=== PATIENT | female | born 1955 | race Caucasian/White ===

== ENCOUNTER 2017-04-04 10:56 | Inpatient (IN) | payer MEDICARE, MEDICAID ==
[~2017-04-04] VITALS: Ht 152.4 cm; Wt 49.0 kg
[~2017-04-04 10:56] MED LIST: AMILORIDE5 MG PO; AMLODIPINE5 MG PO; CALCIUM CARB500 MG PO; COZAAR25 MG PO; CREON1 CAP PO; CREON24000 UNT PO; DIGOXIN0.25 MG PO; FAMOTIDINE20 M1 PO; HYDROCHLOR12.5 MG/CA PO; HYDROCHLOROT25 MG PO; INDERAL10 M1 PO; LOSARTAN POT50 MG PO; LOSARTAN POTASS25 MG PO; MAG OXIDE400 MG PO; METOPROL TAR25 MG PO; MIRTAZAPINE7.5 MG PO; ONDANSETRON HCL4 MG PO; PANTOPRAZOLE SO40 MG PO; PHENERGAN25 MG/TAB PO; PROTONIX40 M2 PO; PROTONIX40 MG PO; SENNA-TABS8.6 MG PO; VITAMIN D50000 UNT PO; [UNRECOGNIZED DRUG - CODE] PO
--- NOTE | 2017-04-04 11:03 | NUR ---
PATIENT AMBULATED TO ROOM 9 WITH STEADY GAIT MD MADE AWARE OF PATIENT STATUS
[2017-04-04] MEDS ORDERED: LOSARTAN POT50 MG PO (11:08)
[2017-04-04] MEDS ORDERED: MAGNESI12 PO (11:27)
--- NOTE | 2017-04-04 11:36 | NUR ---
PT RESTING MORE COMFORTABLY AT THIS TIME. VSS.
[2017-04-04 11:43] LABS: HEMATOCRIT 52.2 % (37.0-47.0); HEMOGLOBIN 17.2 g/dl (12.0-16.0); IMMATURE GRANULOCYTES 0.4 % (0.0-1.0); MEAN CELL VOLUME 82.5 fL CALC (80.0-100.0); MEAN CORPUSCULAR HGB 27.2 pG CALC (26.0-32.0); NEUT# 9.54 thou/uL (2.00-7.15); RED BLOOD COUNT 6.33 mill/uL (4.20-5.60); RED CELL DISTRI WIDTH 13.5 % (11.5-15.5)
[2017-04-04 11:55] LABS: ALKALINE PHOSPHATASE 112 u/l (38-126); AMYLASE 241 u/l (30-110); ANION GAP 22 (6-22 (CALC)); BILIRUBIN, TOTAL 0.7 mg/dL (0.0-1.4); BUN 18 mg/dL (7-17); BUN/CREATININE RATIO 22 (12-20 (CALC)); CALCIUM 9.7 mg/dL (8.4-10.2); CARBON DIOXIDE 25 mmol/l (22-30); CHLORIDE 100 mmol/l (95-108); CREATININE 0.8 mg/dL (0.5-1.0); GFR > 60 ML/MIN (>=60 (CALC)); GFR FOR AFR.AMER. > 60 ML/MIN (>=60 (CALC)); GLUCOSE 132 mg/dL (65-105); LIPASE 613 u/l (23-300); POTASSIUM 3.4 mmol/l (3.5-5.1); SGOT/AST 38 u/l (14-36); SGPT/ALT 40 u/l (9-52); SODIUM 144 mmol/l (137-146); TOTAL PROTEIN 9.1 g/dL (6.3-8.2)
[2017-04-04 12:06] LABS: MYOGLOBIN 25 ng/mL (0 - 62)
--- NOTE | 2017-04-04 12:25 | NUR ---
PT AMBULATED TO BATHROOM WITH SLOW STEADY GAIT. STATES PAIN IS 2/10 AT THIS TIME.VSS. OBTAINED 200CC CLEAR DARK LI URINE,TOELRATING IVF BOLUS WELL.
[2017-04-04 12:48] LABS: URINE BLOOD DIPSTICK TRACE-INTACT (NEGATIVE); URINE GLUCOSE - DIPSTICK NEGATIVE (NEGATIVE); URINE KETONE TRACE mg/dL (NEGATIVE); URINE LEUK ESTERASE NEGATIVE (NEGATIVE); URINE NITRITE - DIPSTICK NEGATIVE (Negative); URINE PROTEIN - DIPSTICK 30 mg/dL (NEG-TRACE); URINE SPECIFIC GRAVITY 1.015; URINE UROBILINOGEN - DIPSTICK 0.2 E.U./dL (0.2)
--- NOTE | 2017-04-04 12:50 | NUR ---
INITIATED SECOND LITER IV FLUID BOLUS. PT TOLERATING WELL. AWARE OF ADMIT AND AGREEABLE. PT STATES SHE IS COMFORTABLE AT THIS TIME.
[2017-04-04 12:59] LABS: URINE BILIRUBIN - DIPSTICK SMALL (NEGATIVE); URINE CLARITY SLIGHT CLOUDY
[2017-04-04 13:00] LABS: URINE COLOR DK. YELLOW; URINE EPITHELIAL CELLS MODERATE EPI/hpf (0-FEW); URINE MUCUS MODERATE hpf (NONE-FEW); URINE RBC 0-2 RBC/hpf (0-5)
--- NOTE | 2017-04-04 13:23 | NUR ---
TRANSPORTED PT TO [facility] VIA WC IN STABLE CONDITION.
--- NOTE | 2017-04-04 13:23 | NUR ---
CALLED REPORT TO KAL LAGUNAS RN
[2017-04-04 13:35] VITALS: BP 176/59
--- NOTE | 2017-04-04 13:40 | NUR ---
PT ARRIVED TO FLOOR VIA WHEELCHAIR ACCOMPANIED BY SILVANA MATTA. PT AMBULATES INDEPENDENTLY. IS PRESENT. PLN OF CARE DISUCSSED. REPORTING OF CONCERNS ENCOURAGED. PT ORIENTED TO ROOM AND EQUIPMENT. CALL LIGHT REIVEWED AND IN REACH. PT STATES UNDERSTANDING.
[2017-04-04 15:44] VITALS: BP 154/62
[2017-04-04 19:01] VITALS: BP 179/83
--- NOTE | 2017-04-04 19:26 | NUR ---
REPORT RECEIVED BS FROM LEAH; PT.C/O PAIN 07/13, MEDICATED W/MORPHINE AND ZOFRAN, WILL REEVALUATE FOR PAIN AND NAUSEA; CALL LIGHT W/IN REACH AND INSTRUCTED TO CALL
[2017-04-04 20:00] VITALS: BP 152/82
--- NOTE | 2017-04-04 23:25 | NUR ---
PT.C/O PAIN IN RUQ OF ABD 10/ AND SOME NAUSEA, MEDICATED W/MORPHINE AND ZOFRAN; DENIES ANY OTHER NEEDS AT THIS TIME, INSTRUCTED TO CALL IF ANY ASSISTANCE IS NEEDED, CALL LIGHT W/IN REACH
[2017-04-05 04:43] VITALS: BP 134/77
--- NOTE | 2017-04-05 04:47 | NUR ---
PT.MEDICATED FOR 10/10 PAIN IN UPPER RIGHT ABD QUAD. AND MILD NAUSEA WORRSENED BY MORPHINE; PT. DENIES ANY FURTHER NEEDS AT THIS TIME, CALL LIGHT AT BS
[2017-04-05 05:18] LABS: AMYLASE 343 u/l (30-110); ANION GAP 15 (6-22 (CALC)); BUN 6 mg/dL (7-17); BUN/CREATININE RATIO 10 (12-20 (CALC)); CALCIUM 8.3 mg/dL (8.4-10.2); CARBON DIOXIDE 26 mmol/l (22-30); CHLORIDE 103 mmol/l (95-108); CREATININE 0.6 mg/dL (0.5-1.0); GFR > 60 ML/MIN (>=60 (CALC)); GFR FOR AFR.AMER. > 60 ML/MIN (>=60 (CALC)); GLUCOSE 96 mg/dL (65-105); LIPASE 1186 u/l (23-300); POTASSIUM 3.5 mmol/l (3.5-5.1); SODIUM 141 mmol/l (137-146)
[2017-04-05 05:22] LABS: HEMATOCRIT 42.5 % (37.0-47.0); HEMOGLOBIN 14.2 g/dl (12.0-16.0); IMMATURE GRANULOCYTES 0.4 % (0.0-1.0); MEAN CELL VOLUME 82.4 fL CALC (80.0-100.0); MEAN CORPUSCULAR HGB 27.5 pG CALC (26.0-32.0); MEAN CORPUSCULAR HGB CONC 33.4 g/L CALC (32.0-36.0); NEUT# 7.29 thou/uL (2.00-7.15); RED BLOOD COUNT 5.16 mill/uL (4.20-5.60); RED CELL DISTRI WIDTH 13.2 % (11.5-15.5)
--- NOTE | 2017-04-05 07:23 | NUR ---
REPORT RECEIVED FROM SILVANA RO. PT SLEEPING AT THIS TIME. CALL LIGHT WITHIN REACH.
[2017-04-05 08:23] VITALS: BP 128/77
--- NOTE | 2017-04-05 14:15 | NUR ---
PT REPORTS MODERATE RUQ ABD PAIN. DILAUDID IV ADMINISTERED. WILL MONITOR FOR EFFECTIVENESS.
--- NOTE | 2017-04-05 15:00 | NUR ---
PT REPORTS RELIEF OF ABD PAIN. TOLERATING CLEAR LIQUIDS AT THIS TIME. WILL CONTINUE TO MONITOR.
--- NOTE | 2017-04-05 17:35 | NUR ---
PT REPORTS MILD ABDOMINAL PAIN. PAIN MED SCHEDULE REVIEWED, PT STATES UNDERSTANDING.
[2017-04-05 19:12] VITALS: BP 129/54
--- NOTE | 2017-04-05 21:45 | NUR ---
PT RESTING IN SEMI FOWLERS POSITION;PT DENIES ANY PAIN AT THIS TIME STATING "IM FEELING BETTER TODAY";ASSESSMENT COMPLETED;IV SITE TO RIGHT HAND INFUSING WELL;SKIN INTACT;PT DENIES ANY NEEDS AT THIS TIME;BED IN LOWEST POSITION WITH CALL LIGHT IN REACH;WILL CONTINUE TO MONITOR
--- NOTE | 2017-04-05 22:50 | NUR ---
PT COMPLAINS OF ABDOMINAL PAIN RATING 5/10 ON THE PAIN SCALE AND REQUESTS PRN PAIN MEDICATION;PT MEDICATED PER MD ORDERS;IV FLUIDS INFUSING WELL;PT DENIES ANY OTHER NEEDS;BED IN LOWEST POSITION WITH CALL LIGHT IN REACH;WILL CONTINUE TO MONITOR
[2017-04-05 23:30] VITALS: BP 146/75
[2017-04-06 03:24] VITALS: BP 122/79
--- NOTE | 2017-04-06 06:08 | NUR ---
PT APPEARS TO BE SLEEPING IN SEMI FOWLERS POSITION;IV FLUIDS INFUSING WELL TO RIGHT HAND;NO S/S OF DISTRESS NOTED;RESPIRATIONS EVEN AND UNLABORED ON RA;BED IN LOWEST POSITION WITH CALL LIGHT IN REACH;WILL CONTINUE TO MONITOR
[2017-04-06 06:19] LABS: HEMATOCRIT 38.2 % (37.0-47.0); HEMOGLOBIN 12.7 g/dl (12.0-16.0); IMMATURE GRANULOCYTES 0.3 % (0.0-1.0); MEAN CELL VOLUME 82.9 fL CALC (80.0-100.0); MEAN CORPUSCULAR HGB 27.5 pG CALC (26.0-32.0); MEAN CORPUSCULAR HGB CONC 33.2 g/L CALC (32.0-36.0); NEUT# 3.14 thou/uL (2.00-7.15); RED BLOOD COUNT 4.61 mill/uL (4.20-5.60); RED CELL DISTRI WIDTH 13.3 % (11.5-15.5)
--- NOTE | 2017-04-06 06:23 | NUR ---
PT CALLS WRITTER TO THE ROOM AND REQUESTS PRN PAIN MEDICATION FOR ABDOMINAL PAIN RATING 5/10 ON THE PAIN SCALE;PT MEDICATED ACCORDINGLY PER MAR;PT DENIES ANY OTHER NEEDS AT THIS TIME;CALL LIGHT WITHIN REACH;WILL CONTINUE TO MONITOR
[2017-04-06 06:45] LABS: AMYLASE 82 u/l (30-110); ANION GAP 13 (6-22 (CALC)); BUN 5 mg/dL (7-17); BUN/CREATININE RATIO 9 (12-20 (CALC)); CALCIUM 8.4 mg/dL (8.4-10.2); CARBON DIOXIDE 25 mmol/l (22-30); CHLORIDE 108 mmol/l (95-108); CREATININE 0.6 mg/dL (0.5-1.0); GFR > 60 ML/MIN (>=60 (CALC)); GFR FOR AFR.AMER. > 60 ML/MIN (>=60 (CALC)); GLUCOSE 80 mg/dL (65-105); LIPASE 151 u/l (23-300); POTASSIUM 3.7 mmol/l (3.5-5.1); SODIUM 143 mmol/l (137-146)
[2017-04-06 08:13] VITALS: BP 142/70
--- NOTE | 2017-04-06 10:38 | NUR ---
Discharge instructions given. Patient verbalizes understanding of same. Discharged in stable condition via Ambulatory to Home with family. All belongings sent with pt.
== END 2017-04-06 10:37 | disposition home or self-care (01) | DRG 440 ==
LOC: ENPENDDIS → ED 10:56 → ED-I 12:38 → ED 13:01 → MS2 13:02
PROVIDERS: Emergency Medicine; Nurse Practitioner Family; ADMIT Internal Medicine; ATTEND Internal Medicine
DX: K85.90 Acute pancreatitis without necrosis or infection, unspecified (principal); E83.42 Hypomagnesemia; I10 Essential (primary) hypertension; K21.9 Gastro-esophageal reflux disease without esophagitis; I48.0 Paroxysmal atrial fibrillation; K86.0 Alcohol-induced chronic pancreatitis; F10.21 Alcohol dependence, in remission; Z87.891 Personal history of nicotine dependence; Z90.49 Acquired absence of other specified parts of digestive tract
CPT/HCPCS: Q9967; S0164

== ENCOUNTER 2017-08-16 20:06 | Observation (INO) | payer MEDICARE ==
[~2017-08-16] VITALS: Ht 152.4 cm; Wt 48.8 kg
[~2017-08-16 20:06] MED LIST changes: +MAGNESI12 PO
--- NOTE | 2017-08-16 20:26 | NUR ---
TAKEN BACK TO ROOM 10 VIA W/C. CLAIMS SHE IS UNABLE TO GIVE A URINE SPECIMEN AT THIS TIME.
--- NOTE | 2017-08-16 20:52 | NUR ---
IVF, IV PROTONIX, IV ANTIEMETIC AND IV PAIN MED GIVEN PER MD ORDER.
[2017-08-16 20:54] LABS: HEMATOCRIT 47.7 % (37.0-47.0); HEMOGLOBIN 15.8 g/dl (12.0-16.0); IMMATURE GRANULOCYTES 0.5 % (0.0-1.0); MEAN CELL VOLUME 82.8 fL CALC (80.0-100.0); MEAN CORPUSCULAR HGB 27.4 pG CALC (26.0-32.0); MEAN CORPUSCULAR HGB CONC 33.1 g/L CALC (32.0-36.0); NEUT# 8.51 thou/uL (2.00-7.15); RED BLOOD COUNT 5.76 mill/uL (4.20-5.60); RED CELL DISTRI WIDTH 12.7 % (11.5-15.5)
[2017-08-16 21:08] LABS: ALBUMIN 4.1 g/dL (3.2-5.0); ALKALINE PHOSPHATASE 112 u/l (38-126); AMYLASE 152 u/l (30-110); ANION GAP 16 (6-22 (CALC)); BILIRUBIN, TOTAL 0.7 mg/dL (0.0-1.4); BUN 17 mg/dL (7-17); BUN/CREATININE RATIO 23 (12-20 (CALC)); CALCIUM 10.2 mg/dL (8.4-10.2); CARBON DIOXIDE 25 mmol/l (22-30); CHLORIDE 105 mmol/l (95-108); CREATININE 0.7 mg/dL (0.5-1.0); GFR > 60 ML/MIN (>=60 (CALC)); GFR FOR AFR.AMER. > 60 ML/MIN (>=60 (CALC)); GLUCOSE 118 mg/dL (65-105); LIPASE 502 u/l (23-300); POTASSIUM 3.9 mmol/l (3.5-5.1); SGOT/AST 21 u/l (14-36); SGPT/ALT 38 u/l (9-52); SODIUM 143 mmol/l (137-146); TOTAL PROTEIN 7.2 g/dL (6.3-8.2)
--- NOTE | 2017-08-16 21:52 | NUR ---
RESTING ON STRETCHER, NO C/O AT THIS TIME. IVF INFUSING WELL, NO REDNESS OR EDEMA NOTED.
--- NOTE | 2017-08-16 22:45 | NUR ---
AMBULATING TO BR GAIT SLOW AND STEADY.
[2017-08-16 22:59] LABS: URINE BILIRUBIN - DIPSTICK NEGATIVE (NEGATIVE); URINE BLOOD DIPSTICK TRACE-LYSED (NEGATIVE); URINE CLARITY SL CLOUDY; URINE COLOR YELLOW; URINE GLUCOSE - DIPSTICK NEGATIVE (NEGATIVE); URINE KETONE NEGATIVE (NEGATIVE); URINE LEUK ESTERASE NEGATIVE (NEGATIVE); URINE NITRITE - DIPSTICK NEGATIVE (Negative); URINE PROTEIN - DIPSTICK NEGATIVE (NEG-TRACE); URINE SPECIFIC GRAVITY <=1.005; URINE UROBILINOGEN - DIPSTICK 0.2 E.U./dL (0.2)
--- NOTE | 2017-08-16 23:02 | NUR ---
MD IN ROOM TO DISCUSS CLINICAL FINDINGS WITH PT. AND MAKE HER AWARE OF ADMISSION.
[2017-08-16 23:03] LABS: BARBITURATES NEGATIVE (NEGATIVE); COCAINE NEGATIVE (NEGATIVE); METHADONE NEGATIVE (NEGATIVE); OXCYCODONE NEGATIVE (NEGATIVE); TETRAHYDROCANNABIONOL POSITIVE (NEGATIVE); TRICYLIC ANTIDEPRESSANTS NEGATIVE (NEGATIVE)
--- NOTE | 2017-08-16 23:05 | NUR ---
pt. states her pain scale is now decreased to a 7 on a scale of 1-10.
--- NOTE | 2017-08-16 23:09 | NUR ---
Admission Note Report Given to: NAUN TIDWELL Transported by: Wheelchair X Stretcher Transported with: X Nurse Transporter X Patent IV O2 Lead Burner Helper
[2017-08-16 23:30] VITALS: BP 155/79
--- NOTE | 2017-08-16 23:30 | NUR ---
RECEIVED FROM ER VIA W/C ACCOMPANIED BY DIONNA PINA, AMBULATING TO BED WITH STEADY GAIT, A/O X3, RESPIRATIONS EVEN AND UNLABORED. ADMITS TO ABDOMINAL PAIN TO RIGHT SIDE, DISCUSSED WITH PT TIME DILAUDID AND ZOFRAN AVAILABLE SINCE THEY ARE ORDERED Q4H PRN PAIN AND WAS LAST MEDICATED AT 2051 IN ER, VOICES UNDERSTANDING. NS SPIKED AND INFUSING TO LAC AT 200CC/HR AT 2350, LIQUIDS AT BED SIDE. ORIENTED TO BED CONTROLS AND CALL LIGHT. WILL CONTINUE TO MONITOR.
--- NOTE | 2017-08-16 23:34 | NUR ---
PT. TAKEN TO MS FLOOR VIA W/C, NO C/O.
--- NOTE | 2017-08-17 00:53 | NUR ---
MEDICATED WITH DILAUDID 1MG IV FOR C/O ABOMINAL PAIN 06/13.
--- NOTE | 2017-08-17 04:30 | NUR ---
RESTING WITH EYES CLOSED, RESPIRATIONS EVEN AND UNLABORED, ADMITS TO FEELING BETTER THIS AM. CALL LIGHT IN REACH.
[2017-08-17 04:36] VITALS: BP 125/73
[2017-08-17 07:32] VITALS: BP 147/89
--- NOTE | 2017-08-17 07:32 | NUR ---
ASSESSMENT IS COMPLETED: PT IS RELAXING IN BED WITH NO DISTRESS NOTED. IV SITE IS FREE FROM REDNESS OR EDEMA. CONTINUE TO OBSERVE AND MONITOR.
--- NOTE | 2017-08-17 12:45 | NUR ---
PT IS RELAXING IN BED WITH NO DISTRESS NOTED. IV SITE IS FREE FROM REDNESS OR EDEMA. CONTINUE TO OSBERVE AND MONITOR.
[2017-08-17 15:23] VITALS: BP 94/62
--- NOTE | 2017-08-17 16:45 | NUR ---
PT CONTINEUS TO RELAX IN BED WITH NO DISTRESS NOTED. IV SITE IS FREE FROM REDNES OR EDEMA.
[2017-08-17 19:37] VITALS: BP 108/67
--- NOTE | 2017-08-17 19:53 | NUR ---
PT IN BED A/O X3, RESPIRATIONS EVEN AND UNLABORED ON RA, IV FLUIDS INFUSING TO LAC AT 80CC/HR. ADMITS TO ABDOMINAL DISCOMFORT /, CLEAR LIQUIDS IN REACH, WILL CONTINUE TO MONITOR.
--- NOTE | 2017-08-17 22:09 | NUR ---
C/O ABDOMINAL PAIN 4/10 AND NAUSEA, MEDICATED WITH DILAUDID 1MG IV AND ZOFRAN 4MG IV. WILL CONTINUE TO MONITOR.
--- NOTE | 2017-08-18 00:30 | NUR ---
RESTING WITH EYES CLOSED, RESPIRATIONS EVEN AND UNLABORED.
--- NOTE | 2017-08-18 04:29 | NUR ---
RESTING WITH EYES CLOSED, WEARING OWN CPAP, RESPONDS EASILY TO VERBL COMMAND, DENIES NAUSEA OR ABD PAIN. CALL LIGHT IN REACH.
[2017-08-18 05:35] VITALS: BP 151/81
[2017-08-18 06:38] LABS: HEMATOCRIT 39.6 % (37.0-47.0); IMMATURE GRANULOCYTES 0.4 % (0.0-1.0); MEAN CELL VOLUME 84.3 fL CALC (80.0-100.0); MEAN CORPUSCULAR HGB 27.7 pG CALC (26.0-32.0); MEAN CORPUSCULAR HGB CONC 32.8 g/L CALC (32.0-36.0); NEUT# 4.02 thou/uL (2.00-7.15); RED BLOOD COUNT 4.7 mill/uL (4.20-5.60); RED CELL DISTRI WIDTH 12.8 % (11.5-15.5)
[2017-08-18 06:50] LABS: AMYLASE 68 u/l (30-110); ANION GAP 11 (6-22 (CALC)); BUN 9 mg/dL (7-17); BUN/CREATININE RATIO 13 (12-20 (CALC)); CALCIUM 8.8 mg/dL (8.4-10.2); CARBON DIOXIDE 25 mmol/l (22-30); CHLORIDE 109 mmol/l (95-108); CREATININE 0.7 mg/dL (0.5-1.0); GFR > 60 ML/MIN (>=60 (CALC)); GFR FOR AFR.AMER. > 60 ML/MIN (>=60 (CALC)); GLUCOSE 92 mg/dL (65-105); LIPASE 108 u/l (23-300); MAGNESIUM 1.2 mg/dL (1.6-2.3); SODIUM 142 mmol/l (137-146)
[2017-08-18 07:35] VITALS: BP 159/82
--- NOTE | 2017-08-18 07:35 | NUR ---
ASSESSMENT IS COMPLETED: IV SITE IS FREE FROM REDNESS OR EDEMA. NO DISTRESS NOTED. SOME C/O PAIN VOICED . PAIN MEDICATION WAS GIVEN IN PM CONTINUE TO OBSERVDE AND MONITOR.
--- NOTE | 2017-08-18 12:30 | NUR ---
PT IS RELAXING IN BED WITH NO DISTRESS NOTED. IV SITE IS FREE FROM REDNESS OR EDEMA.
[2017-08-18 15:03] VITALS: BP 135/64
--- NOTE | 2017-08-18 17:35 | NUR ---
PT AMBULATED OFF THE UNTI FOR DISCHARGE . RECEIVED DISCHARGE INSTRUCTIONS AND VERBALIZED UNDERSTANDING. IV SITE DISCONTINUED CATHETER INTACT. Discharge instructions given. Patient verbalizes understanding of same. Discharged in stable condition via Wheelchair to Home with family. All belongings sent with pt.
== END 2017-08-18 17:28 | disposition home or self-care (01) ==
LOC: ED 20:06 → ED-I 22:45 → ED 22:59 → MS2 23:00
PROVIDERS: Emergency Medicine; Nurse Practitioner Family; ADMIT Internal Medicine; ATTEND Internal Medicine
DX: K85.90 Acute pancreatitis without necrosis or infection, unspecified (principal); I10 Essential (primary) hypertension; I48.0 Paroxysmal atrial fibrillation; G89.4 Chronic pain syndrome; K21.9 Gastro-esophageal reflux disease without esophagitis; F10.21 Alcohol dependence, in remission; E55.9 Vitamin D deficiency, unspecified; K86.1 Other chronic pancreatitis; Z87.891 Personal history of nicotine dependence
CPT/HCPCS: J3475; Q9967; S0164

== ENCOUNTER → 2018-11-30 | Outpatient (REF) | payer MEDICARE | END | disposition home or self-care (01) | LOC: MAMMO 08:12 | PROVIDERS: ATTEND Internal Medicine | DX: Z12.31 Encounter for screening mammogram for malignant neoplasm of breast (principal); N95.1 Menopausal and female climacteric states; Z13.820 Encounter for screening for osteoporosis ==

== ENCOUNTER 2019-06-20 17:02 | Emergency (ER) | payer MEDICARE ==
[~2019-06-20] VITALS: Ht 152.4 cm; Wt 50.0 kg
[2019-06-20 17:54] LABS: IMMATURE GRANULOCYTES 0.5 % (0.0-5.0); MEAN CELL VOLUME 82.7 fL CALC (80.0-100.0); MEAN CORPUSCULAR HGB 27.4 pG CALC (26.0-32.0); MEAN CORPUSCULAR HGB CONC 33.1 g/L CALC (32.0-36.0); NEUT# 7.52 thou/uL (2.00-7.15); RED BLOOD COUNT 5.33 mill/uL (4.20-5.60); RED CELL DISTRI WIDTH 13.3 % (11.5-15.5)
[2019-06-20 18:00] LABS: HEMATOCRIT 44.1 % (37.0-47.0); HEMOGLOBIN 14.6 g/dl (12.0-16.0)
[2019-06-20 18:09] LABS: ALBUMIN 3.6 g/dL (3.2-5.0); ALKALINE PHOSPHATASE 110 u/l (38-126); ANION GAP 15 (6-22 (CALC)); BILIRUBIN, TOTAL 0.3 mg/dL (0.0-1.4); BUN 11 mg/dL (8-23); BUN/CREATININE RATIO 14 (12-20 (CALC)); CARBON DIOXIDE 24 mmol/l (22-30); CHLORIDE 106 mmol/l (95-108); CREATININE 0.8 mg/dL (0.5-1.0); GFR > 60 ML/MIN (>=60 (CALC)); GFR FOR AFR.AMER. > 60 ML/MIN (>=60 (CALC)); MAGNESIUM 1.2 mg/dL (1.6-2.3); POTASSIUM 3.6 mmol/l (3.5-5.1); SGOT/AST 21 u/l (9-36); SODIUM 141 mmol/l (137-146); TOTAL PROTEIN 6.8 g/dL (6.3-8.2)
[2019-06-20] MEDS ORDERED: CLEOCIN150 M1 PO (18:54)
[2019-06-20] MEDS ORDERED: CLEOCIN300 MG PO (18:54)
[2019-06-20] MEDS ORDERED: CIPROFLOXACN500 MG PO (18:54)
[2019-06-20 19:16] VITALS: BP 199/89
== END 2019-06-20 19:17 | disposition home or self-care (01) ==
LOC: ED 17:02
DX: K11.20 Sialoadenitis, unspecified (principal); I10 Essential (primary) hypertension; F17.210 Nicotine dependence, cigarettes, uncomplicated; Z88.0 Allergy status to penicillin

== ENCOUNTER 2020-02-23 07:04 | Inpatient (IN) | payer MEDICARE ==
[~2020-02-23 07:04] MED LIST changes: +CIPROFLOXACN500 MG PO; +CLEOCIN150 M1 PO; +CLEOCIN300 MG PO
--- NOTE | 2020-02-23 07:20 | NUR ---
PT TO ROOM VIA [facility] FOR BEDSIDE TRIAGE. PT ACTIVELY VOMITING.
[2020-02-23 07:44] LABS: HEMOGLOBIN 16.8 g/dl (12.0-16.0); IMMATURE GRANULOCYTES 0.5 % (0.0-5.0); MEAN CORPUSCULAR HGB 27.7 pG CALC (26.0-32.0); MEAN CORPUSCULAR HGB CONC 32.9 g/dL CAL (32.0-36.0); NEUT# 12.1 thou/uL (2.00-7.15); RED BLOOD COUNT 6.07 mill/uL (4.20-5.60); RED CELL DISTRI WIDTH 13.2 % (11.5-15.5)
[2020-02-23] MEDS ORDERED: MULTIVITAMIN1 TAB PO (07:49)
[2020-02-23] MEDS ORDERED: METOPROL TAR25 MG PO (07:52)
[2020-02-23] MEDS ORDERED: NORVASC5 M1 PO (07:52)
[2020-02-23] MEDS ORDERED: CALCIUM + D600 MG PO (07:53)
[2020-02-23 08:03] LABS: ALBUMIN 4.6 g/dL (3.2-5.0); ALKALINE PHOSPHATASE 75 u/l (38-126); BILIRUBIN, TOTAL 0.7 mg/dL (0.0-1.4); BUN 28 mg/dL (8-23); BUN/CREATININE RATIO 26 (12-20 (CALC)); CARBON DIOXIDE 27 mmol/l (22-30); CHLORIDE 98 mmol/l (95-108); CREATININE 1.1 mg/dL (0.5-1.0); GFR 50 ML/MIN (>=60 (CALC)); GFR FOR AFR.AMER. > 60 ML/MIN (>=60 (CALC)); LIPASE 210 u/l (23-300); SGOT/AST 27 u/l (9-36); SODIUM 141 mmol/l (137-146); TOTAL PROTEIN 7.9 g/dL (6.3-8.2)
[2020-02-23 08:06] LABS: ANION GAP 19 (6-22 (CALC)); POTASSIUM 2.8 mmol/l (3.5-5.1)
--- NOTE | 2020-02-23 08:09 | NUR ---
TO CT SCAN.
--- NOTE | 2020-02-23 08:17 | NUR ---
RETURNED FROM CT SCAN.
--- NOTE | 2020-02-23 08:20 | NUR ---
IV FLUIDS INFUSING ORDERED. PT. ASSISTED WITH CHANGE OF GOWN AND PLACED BACK ON MONITOR. GOWN AND MASK CHANGED PT. DID HAVE APPROX 100 CC EPISODE OF EMESIS.
--- NOTE | 2020-02-23 10:05 | NUR ---
PT RESTING QUIETLY ON STRETCHER, VISITOR AT BEDSIDE. NO VOMITING AT THIS TIME. ALERT/ORIENTED X3,
--- NOTE | 2020-02-23 11:09 | NUR ---
ADVISED PT OF WAIT TIME FOR RESULTS. FLUIDS INFUSING. PT STATES FEELS A LITTLE BETTER
[2020-02-23 11:18] LABS: URINE BILIRUBIN - DIPSTICK NEGATIVE (NEGATIVE); URINE BLOOD DIPSTICK NEGATIVE (NEGATIVE); URINE COLOR YELLOW; URINE GLUCOSE - DIPSTICK NEGATIVE (NEGATIVE); URINE KETONE NEGATIVE (NEGATIVE); URINE LEUK ESTERASE NEGATIVE (NEGATIVE); URINE NITRITE - DIPSTICK NEGATIVE (Negative); URINE PH 5.5 (4.5-8.0); URINE PROTEIN - DIPSTICK TRACE mg/dL (NEG-TRACE); URINE UROBILINOGEN - DIPSTICK 0.2 E.U./dL (0.2)
--- NOTE | 2020-02-23 12:07 | NUR ---
REPORT GIVEN TO KAYLIN ON MED SURG. PT TO BE TAKEN TO FLOOR PER STRETCHER AND TELEMETRY
--- NOTE | 2020-02-23 12:22 | NUR ---
PT ARRIVED FROM ER VIA STRETCHER ACCOMPANIED BY STAFF. NO DISTRESS NOTED. IV SITE IS FREE FROM REDNESS OR EDEMA.
[2020-02-23 12:25] VITALS: BP 129/71
--- NOTE | 2020-02-23 12:45 | NUR ---
PT ASSESSMENT IS COMPLETED: IV SITE IS FREE FROM REDNESS OR EDEMA. HR IS REG,PULSES ARE STRONG X4M, ABD IS SOFT/TENDER WITH ACTIVE BS. BREATH SOUNDS ARE CLEAR, BILATERALLY. NO C/O SOB. TELE MONITOR IN PLACE.CONTINUE TO OSEBRVE AND MONITOR.
[2020-02-23 15:28] VITALS: BP 93/56
[2020-02-23 18:25] VITALS: BP 116/67
--- NOTE | 2020-02-23 19:34 | NUR ---
IVF REPLENISHED AT THIS TIME. PT LOW FOWLERS WATCHING TV. DENIES ANY NEEDS. REPORTS LAST BM/LOOSE THIS AM. DENIES N/V/PAIN. ASSESSMENT COMPLETED AT THIS TIME. CALL LIGHT AT SIDE.
[2020-02-23 20:44] LABS: POTASSIUM 3.1 mmol/l (3.5-5.1)
[2020-02-23 20:46] LABS: MAGNESIUM 1.6 mg/dL (1.6-2.3)
--- NOTE | 2020-02-23 21:32 | NUR ---
PT MEDICATED ORDERS PROVIDE. PT WAS SLEEPING, AWOKE TO MY VOICE. NO S/O DISTRESS NOTED. PT DENIES ANY OTHER NEEDS AT THIS TIME. CALL LIGHT AT SIDE.
[2020-02-23 23:50] VITALS: BP 113/69
[2020-02-24 03:30] VITALS: BP 128/70
--- NOTE | 2020-02-24 03:53 | NUR ---
pt sleeping, no s/o distress noted. ivf replenished at this time.
--- NOTE | 2020-02-24 05:15 | NUR ---
REPORT RECEIVED FROM JIA. CARE ASSUMED.
[2020-02-24 06:00] VITALS: BP 113/61
--- NOTE | 2020-02-24 06:00 | NUR ---
PT RESTING IN BED AWAKE. PT IS ALERT AND ORIENTE X3. SHIFT ASSESSMENT COMPLETED AT THIS TIME. IV PATENT X1. CALL LIGHT IN REACH. WILL CONTINUE TO MONITOR.
--- NOTE | 2020-02-24 10:00 | NUR ---
DR VAZQUEZ AT BEDSIDE
[2020-02-24 10:18] LABS: HEMATOCRIT 38.3 % (37.0-47.0); HEMOGLOBIN 12.6 g/dl (12.0-16.0); IMMATURE GRANULOCYTES 0.9 % (0.0-5.0); MEAN CELL VOLUME 85.5 fL CALC (80.0-100.0); MEAN CORPUSCULAR HGB 28.1 pG CALC (26.0-32.0); MEAN CORPUSCULAR HGB CONC 32.9 g/dL CAL (32.0-36.0); NEUT# 4.54 thou/uL (2.00-7.15); RED BLOOD COUNT 4.48 mill/uL (4.20-5.60); RED CELL DISTRI WIDTH 13.3 % (11.5-15.5)
[2020-02-24 10:35] VITALS: BP 129/76
[2020-02-24] MEDS ORDERED: PEPCID40 MG PO (11:01)
--- NOTE | 2020-02-24 11:50 | NUR ---
IV site discontinued, cath intact. No edema , no redness, voices no discomfort.
--- NOTE | 2020-02-24 12:00 | NUR ---
DISCHARGE INSTRUCTIONS REVIEWED WITH PATIENT. PATIENT VERBALIZED UNDERSTANDING.
--- NOTE | 2020-02-24 12:03 | NUR ---
Discharge instructions given. Patient verbalizes understanding of same. Discharged in stable condition via Wheelchair to Home with staff. All belongings sent with pt.
== END 2020-02-24 12:03 | disposition home or self-care (01) | DRG 641 ==
LOC: ED 07:04 → ED-I 10:41 → ED 10:53 → ED-I 10:54 → MS2 10:54
PROVIDERS: Family Medicine; Internal Medicine; ADMIT Internal Medicine; ATTEND Internal Medicine
DX: E87.6 Hypokalemia (principal); K86.1 Other chronic pancreatitis; K91.2 Postsurgical malabsorption, not elsewhere classified; N17.9 Acute kidney failure, unspecified; E83.42 Hypomagnesemia; E86.0 Dehydration; I10 Essential (primary) hypertension; I48.0 Paroxysmal atrial fibrillation; F10.21 Alcohol dependence, in remission; K21.9 Gastro-esophageal reflux disease without esophagitis; G89.4 Chronic pain syndrome; Z98.0 Intestinal bypass and anastomosis status; Z20.828 Contact with and (suspected) exposure to other viral communicable diseases
CPT/HCPCS: J1650; Q9967

== ENCOUNTER 2020-06-25 15:47 | Emergency (ER) | payer MEDICARE ==
[~2020-06-25] VITALS: Ht 152.4 cm; Wt 44.5 kg
[~2020-06-25 15:47] MED LIST changes: +CALCIUM + D600 MG PO; +MULTIVITAMIN1 TAB PO; +NORVASC5 M1 PO; +PEPCID40 MG PO
[2020-06-25] MEDS ORDERED: METOPROL TAR25 MG PO (16:05)
[2020-06-25] MEDS ORDERED: LOSARTAN POTASS50 MG PO (16:07)
[2020-06-25 16:24] LABS: GFR > 60 ML/MIN (>=60 (CALC)); GFR FOR AFR.AMER. > 60 ML/MIN (>=60 (CALC))
[2020-06-25 16:26] LABS: HEMATOCRIT 45.4 % (37.0-47.0); HEMOGLOBIN 14.4 g/dl (12.0-16.0); IMMATURE GRANULOCYTES 0.3 % (0.0-5.0); MEAN CELL VOLUME 85.2 fL CALC (80.0-100.0); MEAN CORPUSCULAR HGB CONC 31.7 g/dL CAL (32.0-36.0); NEUT# 9.02 thou/uL (2.00-7.15); RED BLOOD COUNT 5.33 mill/uL (4.20-5.60)
[2020-06-25 16:27] LABS: URINE BILIRUBIN - DIPSTICK NEGATIVE (NEGATIVE); URINE BLOOD DIPSTICK NEGATIVE (NEGATIVE); URINE COLOR YELLOW; URINE GLUCOSE - DIPSTICK NEGATIVE (NEGATIVE); URINE KETONE NEGATIVE (NEGATIVE); URINE LEUK ESTERASE NEGATIVE (NEGATIVE); URINE NITRITE - DIPSTICK NEGATIVE (Negative); URINE PH 6.5 (4.5-8.0); URINE PROTEIN - DIPSTICK NEGATIVE (NEG-TRACE); URINE SPECIFIC GRAVITY 1.015; URINE UROBILINOGEN - DIPSTICK 0.2 E.U./dL (0.2)
[2020-06-25 16:41] LABS: BILIRUBIN, TOTAL 0.3 mg/dL (0.0-1.4); BUN 12 mg/dL (8-23); BUN/CREATININE RATIO 21 (12-20 (CALC)); CARBON DIOXIDE 23 mmol/l (22-30); CHLORIDE 105 mmol/l (95-108); CREATININE 0.6 mg/dL (0.5-1.0); GFR > 60 ML/MIN (>=60 (CALC)); GFR FOR AFR.AMER. > 60 ML/MIN (>=60 (CALC)); LIPASE 1536 u/l (23-300); SGOT/AST 27 u/l (9-36); SODIUM 137 mmol/l (137-146); TOTAL PROTEIN 7.5 g/dL (6.3-8.2)
[2020-06-25 16:43] LABS: ALKALINE PHOSPHATASE 153 u/l (38-126); ANION GAP 13 (6-22 (CALC)); POTASSIUM 4.1 mmol/l (3.5-5.1)
[2020-06-25 18:15] VITALS: BP 124/57
== END 2020-06-25 18:15 | disposition short-term general hospital (02) ==
LOC: ED 15:47 → ED-I 16:40 → ED 18:15
PROVIDERS: Family Medicine
DX: K86.89 Other specified diseases of pancreas (principal); K85.90 Acute pancreatitis without necrosis or infection, unspecified; I10 Essential (primary) hypertension; F17.200 Nicotine dependence, unspecified, uncomplicated
CPT/HCPCS: Q9967

== ENCOUNTER → 2023-06-21 | Day surgery (SDC) | payer MEDICARE, MEDICAID ==
[~2023-06-21] VITALS: Ht 154.9 cm; Wt 46.7 kg
[~2023-06-21] MED LIST changes: +LOSARTAN POTASS50 MG PO; +PEPCID20 MG PO; +[UNRECOGNIZED DRUG - OTHER] IN
[2023-06-21 07:44] VITALS: BP 148/73
== END | disposition home or self-care (01) ==
LOC: ENDO 06:51 → ORM 08:10
PROVIDERS: ATTEND Internal Medicine Gastroenterology
DX: Z12.11 Encounter for screening for malignant neoplasm of colon (principal); K86.1 Other chronic pancreatitis; K86.2 Cyst of pancreas; I10 Essential (primary) hypertension; K21.9 Gastro-esophageal reflux disease without esophagitis; R10.84 Generalized abdominal pain; R82.5 Elevated urine levels of drugs, medicaments and biological substances; Z53.09 Procedure and treatment not carried out because of other contraindication; Z86.010 Personal history of colon polyps

== ENCOUNTER 2023-10-11 10:18 | Day surgery (SDC) | payer MEDICARE ==
[~2023-10-11] VITALS: Ht 152.4 cm; Wt 46.7 kg
[~2023-10-11 10:18] MED LIST changes: +HAIR SKIN & NAI1 TAB PO; +MULTIVITAMI9 PO
[2023-10-11 11:07] VITALS: BP 175/88
== END 2023-10-11 11:20 | disposition home or self-care (01) ==
LOC: ORM 10:18
PROVIDERS: ATTEND Internal Medicine Gastroenterology
DX: Z12.11 Encounter for screening for malignant neoplasm of colon (principal); Z86.010 Personal history of colon polyps; K86.1 Other chronic pancreatitis; K21.9 Gastro-esophageal reflux disease without esophagitis; I10 Essential (primary) hypertension; Z53.09 Procedure and treatment not carried out because of other contraindication; R82.5 Elevated urine levels of drugs, medicaments and biological substances